=== PATIENT | male | born 1985 | race Hispanic/Latino ===

== ENCOUNTER 2018-08-19 08:54 | Inpatient (IN) | payer SELFPAY ==
[2018-08-19] MEDS ORDERED: Metoclopramide HCl 10 MG/2 ML VIAL ONE (09:05)
[2018-08-19] MEDS ORDERED: PROPOFOL 200 MG/20 ML VIAL ONE (09:05)
[2018-08-19] MEDS ORDERED: Ketorolac Tromethamine 30 MG/ML VIAL ONE (09:05)
[2018-08-19] MEDS ORDERED: PHENYLEPHRINE-NS 100 MCG/ML 10 ML SYRINGE ONE (09:05)
[2018-08-19] MEDS ORDERED: Lidocaine 1% PF 5 ML VIAL ONE (09:05)
[2018-08-19] MEDS ORDERED: diphenhydrAMINE 50 MG/ML VIAL ONE (09:05)
[2018-08-19] MEDS ORDERED: Ondansetron PF 4 MG/2 ML Vial ONE (09:05)
[2018-08-19] MEDS ORDERED: Dexamethasone 20 MG/5 ML VIAL ONE (09:05)
[2018-08-19] MEDS ORDERED: Lidocaine 1% (PF) 30 ML VIAL ONE (09:27)
--- NOTE | 2018-08-19 10:16 | RAD ---
THREE VIEWS 2ND DIGIT LEFT HAND: HISTORY: Trauma to 2nd digit left hand. FINDINGS: AP, lateral, and oblique views left hand are obtained. Images demonstrate gas seen along the anterior aspect of the 2nd digit left hand. There is an acute intraarticular fracture involving the medial proximal portion of the distal phalanx 2nd digit. The f racture extends intraarticularly. No other acute bony abnormality is seen. IMPRESSION: Acute fracture involving the proximal portion distal phalanx 2nd digit left hand. POS: KIET
[2018-08-19 10:53] LABS: #Eosinphils 0.2 thou/uL (0.0-0.7); #Lymphocytes 1.2 thou/uL (1.20-3.40); #Monocytes 0.4 thou/uL (0.11-0.59); %Basophils 0.7 % (0.0-1.0); %Eosinophils 2.9 % (0.0-10.0); %Lymphocytes 20.4 % (21.0-51.0); %Monocytes 7.1 % (0.0-10.0); Hemoglobin 13.2 g/dL (14.0-18.0); Mean Corpuscular HGB CONC 32.5 g/dL (32.0-36.0); Mean Corpuscular Hemoglobin 28.1 pg (27.0-31.0); Mean Corpuscular Volume 86.4 fL (78.0-98.0); Mean Platelet Volume 6.2 fL (7.4-10.4); Platelet Count 313 thou/uL (130-400); RBC Distribution Width 11.9 % (11.5-14.5); Red Blood Cell (RBC) Count 4.69 mill/uL (4.70-6.10); White Blood Cell (WBC) Count 5.8 thou/uL (4.8-10.8)
[2018-08-19 11:14] LABS: ALT (SGPT) 27 U/L (8-55); AST (SGOT) 18 U/L (5-34); Albumin 4.5 g/dL (3.5-5.0); Alkaline Phosphatase 88 U/L (40-150); Anion Gap 11 mmol/L (10-20); BUN (Urea Nitrogen) 11 mg/dL (8.9-20.6); Bilirubin, Total 0.4 mg/dL (0.2-1.2); Calc. Creatinine Clearance 0 mL/min (70-130); Calcium 9.4 mg/dL (7.8-10.44); Carbon Dioxide 27 mmol/L (22-29); Chloride 103 mmol/L (98-107); Estimated GFR-MDRD Greater than 90; Globulin 3.1 g/dL (2.4-3.5); Glucose 105 mg/dL (70-105); Potassium 4.2 mmol/L (3.5-5.1); Protein, Total 7.6 g/dL (6.0-8.3); Sodium 137 mmol/L (136-145)
[2018-08-19] MEDS ORDERED: Adacel (T-DAP) 0.5 ML SYRINGE ONE (11:47)
[2018-08-19] MEDS ORDERED: Gentamicin 80 MG/2 ML VIAL ONE (11:52)
[2018-08-19] MEDS ORDERED: Gentamicin Sulfate 80 MG in Premix Bag 1 BAG IVPB SCH (12:00)
[2018-08-19] MEDS ORDERED: Ondansetron ODT 4 MG TAB SL PRN (13:04)
[2018-08-19] MEDS ORDERED: Morphine 4 MG/ML VIAL SLOW IVP PRN ×2 (13:04→21:40)
[2018-08-19] MEDS ORDERED: Ondansetron PF 4 MG/2 ML Vial IVP PRN (13:04)
[2018-08-19 13:16] VITALS: BMI 26.5
[2018-08-19] MEDS: Sodium Chloride 0.9% 1,000 ML IV SCH ×2 (13:34→22:04)
[2018-08-19] MEDS ORDERED: Morphine 2 MG/ML SYRINGE ONE (17:05)
[2018-08-19] MEDS ORDERED: Bupivacaine PF 0.5% 30 ML VIAL ONE (18:42)
[2018-08-19] MEDS ORDERED: Bacitracin Zinc Ointment 30 gm TUBE ONE (18:42)
[2018-08-19] MEDS ORDERED: Sodium Chloride 0.9% 10 ML ONE (18:42)
[2018-08-19] MEDS ORDERED: Fentanyl 100 MCG/2 ML VIAL ONE (18:48)
[2018-08-19] MEDS ORDERED: Sodium Chloride 0.9% 20 ML ONE (18:57)
[2018-08-19] MEDS ORDERED: Sodium Chloride 0.9% 0 ML ONE (19:20)
[2018-08-19] MEDS ORDERED: Milk Of Magnesia 30 ML UDCUP PO PRN (21:40)
[2018-08-19] MEDS ORDERED: Acetaminophen 325 MG TAB PO PRN (21:40)
[2018-08-19] MEDS ORDERED: Ondansetron PF 4 MG/2 ML Vial IV PRN (21:40)
[2018-08-19] MEDS ORDERED: Promethazine HCl 25 MG/ML VIAL IM PRN ×2 (21:40→21:48)
[2018-08-19] MEDS ORDERED: Communication Order-Pharmacy FS SCH (21:45)
[2018-08-19] MEDS ORDERED: Ondansetron HCl/PF 4 MG/2 ML Vial IVP PRN (21:48)
[2018-08-19] MEDS ORDERED: Promethazine HCl 25 MG/ML VIAL SLOW IVP PRN (21:48)
[2018-08-19] MEDS ORDERED: Meperidine HCl/PF 25 MG/ML VIAL SLOW IVP PRN (21:48)
[2018-08-19] MEDS ORDERED: Ketorolac Tromethamine 30 MG/ML VIAL IVP PRN (21:48)
[2018-08-19] MEDS ORDERED: TETANUS AND DIPHTHERIA TOX/PF 0.5 ML DISP.SYRIN IM SCH (22:30)
--- NOTE | 2018-08-19 22:41 | RAD ---
LEFT FINGER THREE VIEWS: History: Pinning of the fingers. Comparison: Radiograph same day. FINDINGS: Fluoroscopic images were obtained from the operating room. There are pins placed through the distal p halanx of the index finger base. IMPRESSION: Fluoroscopy for surgical use. Total fluoro time: 37.2 seconds. POS: LANA
[2018-08-19] MEDS: Vancomycin HCl 1 GM in Premix Bag 1 BAG IVPB SCH (22:49)
[2018-08-20] MEDS: HYDROcodone/Acetaminophen 5/325 mg Tablet PO PRN ×5 (00:09→21:21)
[2018-08-20] MEDS: Vancomycin HCl 1 GM in Premix Bag 1 BAG IVPB SCH ×3 (05:45→21:21)
[2018-08-20] MEDS: Ketorolac Tromethamine 30 MG/ML VIAL IVP SCH ×4 (05:46→23:42)
[2018-08-20] MEDS: Aspirin 81 mg Enteric Coated Tablet PO SCH ×2 (08:00→21:21)
[2018-08-20] MEDS ORDERED: Aspirin 81 mg Enteric Coated Tablet PO SCH (09:00)
--- NOTE | 2018-08-20 13:03 | OP ---
DATE OF PROCEDURE: 08/19/2018 PREOPERATIVE DIAGNOSIS: Left index finger distal interphalangeal joint fracture and possible extensor tendon laceration at the left index finger. POSTOPERATIVE DIAGNOSES: 1. Closed distal phalanx fracture avulsion off the index fingers, ulnar aspect. 2. Open proximal interphalangeal joint from the laceration. 3. Zone 2 extensor tendon partial laceration including the sagittal band with a 5 mm loss of substance. 4. Mild contamination of the wound subcutaneous . PROCEDURES PERFORMED: 1. Debridement of wound, left index finger. 2. Debridement of open joint proximal phalangeal joint. 3. Closed reduction and pinning of distal phalanx fracture. 4. Extensor tendon repair, partial rupture, lateral band, ulnar aspect. 5. C-arm supervision. 6. Closure of wound, 5 cm. TOURNIQUET TIME: 40 minutes. ESTIMATED BLOOD LOSS: 10 mL. INDICATIONS: The patient had a saw injury at work with some gross contamination seen in the skin and subcutaneous tissues, with fracture of distal phalanx involved and possible tendon injury, operative intervention indicated. By the time I examined the patient in the emergency room, already had a complete block and limited evaluation of sensory and motor function. DESCRIPTION OF PROCEDURE: After successful general LMA technique, the limb was prepped and draped. The patient then had the tourniquet deflated. The time-out was done appropriately, limb exsanguinated, tourniquet inflated to 250 mmHg pressure and we began. First, the patient had the wound inspected, we extended the incision distally 1.5 cm in a curvilinear incision on more mid lateral then dorsal. This exposed the terminal tendon. There was no laceration here. No open injury. An open injury began at approximately 8 mm proximal to the distal interphalangeal joint just at the base of the distal phalanx fracture was not an open injury. The nail bed was intact. We then began with subcutaneous debridement, where there was some debris involving dermis and epidermis, so 1.5 mm circumferential area was removed with tenotomy scissors and Comanche blade. Using Comanche blade, tendon and central slip. On the ulnar aspect, there was an open injury involving the area just ulnar to the central slip, where there was a 4 mm long opening in the joint space without fracture and gross debris. There was an area of 5 mm distal to this with the sagittal band, over a 5 mm area lost approximately 50% of its width. We then finished our debridement using the excisional technique. We used a curette, tenotomy scissors, Comanche blade, and irrigation with 3 L normal saline and Pulsavac pressure. We then had the depth down to including some bone, where the tendon had loss of substance and here, a curette was very helpful. Once we finished the irrigation, we then began repair. First, we did a closed reduction and held the fracture with a small clamp externally and placed across 0.035 K-wires extra-articularly into the bone in the frontal sagittal plane. It was nearly anatomically reduced with no gap seen. We then irrigated the 4 mm hole in the joint after inspecting it and see no gross contamination with 250 mL normal saline using a 20 mL syringe at one time with a large Angiocath. We then used a one 3-0 Vicryl to close the joint defect. Finally, we used a 5-0 Prolene to repair some of the sagittal band into the central slip and the terminal tendon as well to prevent further deterioration and noticed that the patient had normal tenodesis effect. We then deflated the tourniquet, obtained hemostasis, the wound debridement was completed and we closed with interrupted 4-0 nylon in a simple pattern. Bulky dressing applied with a splint at the interphalangeal joints in full extension and the MP joints at approximately 30 degrees of flexion. The patient left the operating room without evidence of anesthetic or operative complication. Job ID: [id number]
[2018-08-20 13:24] LABS: Vancomycin, Trough 12.9 ug/mL
[2018-08-20] MEDS: traMADol HCl 50 MG TAB PO PRN ×2 (17:49→23:41)
[2018-08-21 01:01] VITALS: BP 111/66; TEMP 97.9
== END 2018-08-21 02:10 | disposition home or self-care (01) | DRG 514 ==
LOC: ERS 08:54 → SURG B 12:31
PROVIDERS: ADMIT Orthopaedic Surgery Hand Surgery; ATTEND Orthopaedic Surgery Hand Surgery
PROC: 0PSV34Z Reposition Left Finger Phalanx with Internal Fixation Device, Percutaneous Approach (ICD-10-PCS; principal; 2018-08-19)
PROC: 0LQ80ZZ Repair Left Hand Tendon, Open Approach (ICD-10-PCS; 2018-08-19)
DX: S62.631A Displaced fracture of distal phalanx of left index finger, initial encounter for closed fracture (principal); S63.631A Sprain of interphalangeal joint of left index finger, initial encounter; W45.8XXA Other foreign body or object entering through skin, initial encounter
CPT/HCPCS: 36415; 76000; 80053; 80202; 85025; 90715; 93005; 96365; 99406; J1100; J1200; J1580; J1885; J2001; J2270; J2405; J2704; J2765; J3010; J3370; J3490; S0020

== ENCOUNTER 2018-10-04 09:50 | Day surgery (SDC) | payer OTHER ==
[2018-10-04 10:37] LABS: #Eosinphils 0.2 thou/uL (0.0-0.7); #Lymphocytes 1.9 thou/uL (1.20-3.40); #Monocytes 0.5 thou/uL (0.11-0.59); #Neutrophils 2.8 thou/uL (1.40-6.50); %Basophils 0.7 % (0.0-1.0); %Eosinophils 4.2 % (0.0-10.0); %Lymphocytes 35.7 % (21.0-51.0); %Monocytes 8.2 % (0.0-10.0); %Neutrophils 51.1 % (42.0-75.0); Hemoglobin 12.5 g/dL (14.0-18.0); Mean Corpuscular Hemoglobin 28.6 pg (27.0-31.0); Mean Corpuscular Volume 86.8 fL (78.0-98.0); Mean Platelet Volume 6.1 fL (7.4-10.4); Platelet Count 265 thou/uL (130-400); RBC Distribution Width 11.4 % (11.5-14.5); Red Blood Cell (RBC) Count 4.37 mill/uL (4.70-6.10); White Blood Cell (WBC) Count 5.4 thou/uL (4.8-10.8)
[2018-10-04] MEDS ORDERED: Clindamycin/D5W 600 mg/50 ml Premix Bag ONE (11:21)
[2018-10-04] MEDS ORDERED: Fentanyl 100 MCG/2 ML VIAL ONE (15:15)
[2018-10-04] MEDS ORDERED: Bacitracin Zinc Ointment 30 gm TUBE ONE (15:18)
[2018-10-04] MEDS ORDERED: Bupivacaine PF 0.5% 30 ML VIAL ONE (15:18)
[2018-10-04] MEDS ORDERED: Sodium Chloride 0.9% 10 ML ONE (15:18)
[2018-10-04] MEDS ORDERED: Ondansetron PF 4 MG/2 ML Vial ONE (15:24)
[2018-10-04] MEDS ORDERED: Lidocaine 1% PF 5 ML VIAL ONE (15:24)
[2018-10-04] MEDS ORDERED: PROPOFOL 200 MG/20 ML VIAL ONE (15:24)
[2018-10-04] MEDS ORDERED: PHENYLEPHRINE-NS 100 MCG/ML 10 ML SYRINGE ONE (15:24)
[2018-10-04] MEDS ORDERED: Dexamethasone 20 MG/5 ML VIAL ONE (15:24)
[2018-10-04] MEDS ORDERED: Ketorolac Tromethamine 30 MG/ML VIAL ONE (16:46)
[2018-10-04] MEDS ORDERED: HYDROcodone/Acetaminophen 5/325 mg Tablet ONE (17:40)
--- NOTE | 2018-10-07 08:39 | OP ---
DATE OF PROCEDURE: 10/04/2018 PREOPERATIVE DIAGNOSES: 1. Right index finger painful warts from the previous distal phalanx fracture internal fixation. 2. Abscess, right index finger. PROCEDURES PERFORMED: 1. Incision and drainage of abscess. 2. Painful distal phalanx K-wire x2 removed. SPECIMEN SENT: Culture from the wound SPECIMEN REMOVED: Two K-wires, each approximately 1.5 cm long. INDICATIONS: The patient reported to clinic less than 24 hours prior to the surgery with pain, swelling acutely, and possible early fluctuance around the pinning, palpated subcutaneously. TOURNIQUET TIME: 11 minutes. ESTIMATED BLOOD LOSS: 5 mL. FINDINGS: No pin-tract deep infection, only superficial. DESCRIPTION OF PROCEDURE: After successful general endotracheal, limb was prepped and draped. We then performed time-out appropriately, injected the right index finger metacarpophalangeal joint level with 10 mL of 0.5% Marcaine and epinephrine, and then waited for 5 minutes, and exsanguinated the limb. Tourniquet was inflated to 250 mmHg. We made a total of approximately 8 mm incision over a 4.5 mm area where we could see mild purulence, only minimal thickened tissue, but not gross pus. We resected the entire granuloma-type area given wide and 4 mm long and underneath this was the K-wires. We removed the K-wire, no evidence of pin-tract infection. We curetted and debrided the area, and then released the tourniquet. We irrigated the site with 500 mL of normal saline, and then closed it after obtaining hemostasis with interrupted 4-0 nylon simple pattern. Bulky dressing was applied in finger tube fashion. The patient left the operating room without evidence of anesthetic operative complications. Job ID: [id number]
--- NOTE | 2018-10-09 09:20 | PQF ---
[facility] POST DISCHARGE CLINICAL DOCUMENTATION IMPROVEMENT CLARIFICATION FORM l Todays Date: 10/09/18 l Patients Name BALTAZAR BRENNAN l l Admit Date 10/04/18 l Disch Date 10/04/18 Livestock Yard Attendant Name Oswaldo Garcia Email: [email or web address] Cell: [phone] To be completed by Livestock Yard Attendant: Present Clinical Indicators - Signs / Symptoms Results and Location in Medical Record [ ] Documentation of: [ ] [ ] Documentation of: [ ] [ ] Documentation of: [ ] [ ] Documentation of: [ ] [ ] Risks [ ] [ ] [ ] Treatment [ ] Painful Internal fixation and abcess of Index finger Query for Laterality of Procedure OP report states R, while H&P and Anes reports states L Kindly clarify, Thank you. [ ] [ ] To be completed by Physician: ISAMAR DOMINGUEZ The documentation in this patients record requires clarification to ensure coding compliance and accuracy. Check the appropriate box and include in your discharge summary. [ ] [ ] [ ] [ ] Please check this box if this does not apply to this patient [ ] Unable to determine [ ] Other diagnosis: Review the following information and exercise your independent professional judgment in responding to the clarification. Based upon the clinical findings, risk factors, and treatment, please clarify if you are treating one of the above probable or suspected diagnoses. Physician Signature: Date Time MTDD
== END 2018-10-04 18:10 | disposition home or self-care (01) ==
LOC: SDC 09:50
PROVIDERS: ATTEND Orthopaedic Surgery Hand Surgery
PROC: 0RPW0JZ Removal of Synthetic Substitute from Right Finger Phalangeal Joint, Open Approach (ICD-10-PCS; principal; 2018-10-04)
DX: T84.84XA Pain due to internal orthopedic prosthetic devices, implants and grafts, initial encounter (principal); T81.41XA Infection following a procedure, superficial incisional surgical site, initial encounter; Z98.890 Other specified postprocedural states
CPT/HCPCS: 36415; 85025; 85652; 87070; 87205; J1100; J1885; J2001; J2405; J2704; J3010; J3490; S0020